=== PATIENT | female | born 1945 | race Two or more races ===

== ENCOUNTER 2019-06-24 15:39 | Inpatient (IN) | payer OTHER ==
[~2019-06-24] VITALS: Ht 154.9 cm; Wt 64.4 kg
[2019-06-24] MEDS ORDERED: HYDROcodone-ACET 7.5/325MG TAB PO ONE (17:00)
[2019-06-24] MEDS ORDERED: NITROGLYCERIN 0.4 MG SL TAB SL PRN (18:00)
[2019-06-24] MEDS ORDERED: ONDANSETRON HCL 4 MG/2 ML VIAL IV PRN (18:00)
[2019-06-24] MEDS ORDERED: DOCUSATE SOD 100 MG CAP PO PRN (18:00)
[2019-06-24 18:38] LABS: Basophils # (auto) 0 10 ^3/uL (0-0.2); Basophils % (auto) 0.3 % (0.0-2.0); Eosinophils # (auto) 0 10 ^3/uL (0-0.8); Eosinophils % (auto) 0.6 % (0.0-7.0); Hemoglobin 13.3 g/dL (12.2-16.2); Lymphocytes # (auto) 1.4 10 ^3/uL (0.4-5.4); Mean Corpuscular Hemoglobin 33.1 pg (28.0-32.0); Mean Corpuscular Hgb Conc. 34.1 g/dL (32.0-36.0); Mean Corpuscular Volume 97.1 fL (80.0-100.0); Monocytes # (auto) 0.3 10 ^3/uL (0-1.3); Monocytes % (auto) 4.8 % (0.0-12.0); Neutrophils # (auto) 5.3 10 ^3/uL (1.6-8.6); Neutrophils % (auto) 74.3 % (37.0-80.0); Nucleated Red Blood Cells % 0.1 %; Platelet Count (auto) 271 10^3/uL (140-450); Red Blood Cells 4.02 10^6/uL (4.0-5.20); Red Cell Distribution Width 12.5 % (11.8-14.3); White Blood Cell 7.1 10^3/uL (4.4-10.8)
[2019-06-24 18:53] LABS: Albumin 3.7 g/dL (3.4-5.0); Calcium 9.1 mg/dL (8.5-10.1); Potassium 3.4 mmol/L (3.5-5.1)
[2019-06-24 18:58] LABS: Bilirubin, Total 0.3 mg/dL (0.2-1.0); Total Protein 7.4 g/dL (6.4-8.2)
[2019-06-24 19:01] LABS: INR 0.96 (0.9-1.15); Partial Thromboplastin Time 26.5 sec (23.64-32.05)
[2019-06-24 20:03] LABS: BUN/Creatinine Ratio 17.3
--- NOTE | 2019-06-24 20:30 | NUR ---
Telemetry admit from [facility] admitted to Telemetry unit after SBAR received. Patient oriented to Eric Villareal, primary RN, unit, room, bed, and unit policies regarding patient care and visiting hours. Patient now on continuous telemetry monitoring, tele box # [id number] and telemetry reading on arrival to unit is sinus rhythm. Patient weighed by bedscale and encouraged to call if they need something. All questions and concerns addressed, patient verbalized understanding.
[2019-06-24 21:11] VITALS: BP 141/75
[2019-06-24] MEDS ORDERED: SIMV-8 PO (21:23)
[2019-06-24 22:00] VITALS: BP 124/58
[2019-06-24] MEDS: MORPHINE SULF INJ 2 MG/ML SYRINGE 1ML IV PRN (22:06)
[2019-06-25] MEDS: MORPHINE SULF INJ 2 MG/ML SYRINGE 1ML IV PRN ×3 (04:12→17:58)
[2019-06-25 05:00] VITALS: BP 115/69
[2019-06-25 06:05] LABS: Basophils # (auto) 0 10 ^3/uL (0-0.2); Basophils % (auto) 0.3 % (0.0-2.0); Eosinophils # (auto) 0 10 ^3/uL (0-0.8); Eosinophils % (auto) 0.6 % (0.0-7.0); Hematocrit 35.6 % (36.0-46.0); Hemoglobin 12.4 g/dL (12.2-16.2); Lymphocytes # (auto) 1.3 10 ^3/uL (0.4-5.4); Lymphocytes % (auto) 17.5 % (10.0-50.0); Mean Corpuscular Hemoglobin 33.8 pg (28.0-32.0); Mean Corpuscular Hgb Conc. 34.8 g/dL (32.0-36.0); Mean Corpuscular Volume 97.1 fL (80.0-100.0); Monocytes # (auto) 0.6 10 ^3/uL (0-1.3); Monocytes % (auto) 8.1 % (0.0-12.0); Neutrophils # (auto) 5.6 10 ^3/uL (1.6-8.6); Neutrophils % (auto) 73.5 % (37.0-80.0); Platelet Count (auto) 256 10^3/uL (140-450); Red Blood Cells 3.67 10^6/uL (4.0-5.20); Red Cell Distribution Width 12.6 % (11.8-14.3); White Blood Cell 7.6 10^3/uL (4.4-10.8)
[2019-06-25 06:19] LABS: INR 0.98 (0.9-1.15); Partial Thromboplastin Time 26.7 sec (23.64-32.05)
[2019-06-25 06:30] LABS: BUN/Creatinine Ratio 18.1; Calcium 8.3 mg/dL (8.5-10.1); Potassium 3.8 mmol/L (3.5-5.1)
[2019-06-25 09:00] VITALS: BP 117/69
--- NOTE | 2019-06-25 10:00 | NUR ---
PAIN PATIENT C/O LEFT KNEE PAIN, RATES IT 8/10 ICE PACK PROVIDED AND PATIENT REPOSITIONED FOR OPTIMAL COMFORT. PATIENT REQUESTING PAIN MEDICATION. WILL MEDICATE PER MD REQUEST.
[2019-06-25] MEDS: FAMOTIDINE 20 MG TAB PO SCH (10:17)
--- NOTE | 2019-06-25 11:12 | NUR ---
12 LEAD EKG DONE PER ORDERS. YOLY DIEGO REVIEWED STRIP. NO NEW ORDERS RECEIVED.
--- NOTE | 2019-06-25 11:25 | NUR ---
MD WOO AT BED SIDE DISCUSSING POC WITH PATIENT. PATIENT VERBALIZES UNDERSTANDING. PER MD, HE WILL BE ENTERING ORDERS TO SCHEDULE PT FOR SURGERY IN AM. WILL AWAIT ORDERS.
--- NOTE | 2019-06-25 12:41 | NUR ---
MD STEELE AT BED SIDE DISCUSSING POC WITH PATIENT. PATIENT VERBALIZES UNDERSTANDING. NO NEW ORDERS RECEIVED.
[2019-06-25 13:00] VITALS: BP 113/58
--- NOTE | 2019-06-25 16:00 | NUR ---
CARDIOLOGY CONSULT YOLY DIEGO AT BED SIDE ASSESSING AND DISCUSSING POC WITH PATIENT. PATIENT VERBALIZES UNDERSTANDING. NEW ORDERS RECEIVED. REFER TO EMAR. Addendum: 06/25/19 at 1602 by YESICA TARANGO RN RN WRONG TIME CONSULTATION DONE AT 1050
[2019-06-25 16:51] VITALS: BP 125/75
[2019-06-25 22:00] VITALS: BP 111/69
--- NOTE | 2019-06-25 23:52 | NUR ---
PATIENT ARRIVED UNIT [facility] AT 2055 WAS RECEIVED IN ROOM AND MADE COMFORTABLE ON HIS BED. DENIED PAIN.ABLE TO WALK TO THE BATHROOM.
--- NOTE | 2019-06-25 23:55 | NUR ---
2129: MOTHER CALLED AND PERSONALLY GAVE HISTORY. PROMISED TO FAX HIS MEDICATION IN AM FOR MEDICATION RECONCILIATION.
--- NOTE | 2019-06-26 00:03 | NUR ---
NOTES ENTERED 2352 AND 2355 (06/25/2019) ARE NOT FOR THIS PATIENT. THEY WERE ENTERED IN ERROR.
[2019-06-26] MEDS: HYDROcodone-ACET 5/325MG TAB PO PRN ×3 (00:24→21:24)
--- NOTE | 2019-06-26 04:27 | NUR ---
199906/25/2019. PATIENT FOUND AWAKE AND ALERT ON ER BED WITH LEFT LEG ELEVATED ON A PILLOW. DENEID PAIN AT THIS TIME. PATIENT IS FOR POSSIBLE SURGICAL REPAIR OF THE FRACTURE IN AM. IMMOBILIZATION OF LEG WITH BRACE MATERIAL IN PLACE. DISTAL END OF LEG WARM AND WITH CAPILLARY REFILL LESS THAN 3 SECONDS.
--- NOTE | 2019-06-26 04:33 | NUR ---
0024. 06/26/2019.PATIENT MEDICATED FOR PAIN WITH NORCO ONE TABLET.
--- NOTE | 2019-06-26 04:35 | NUR ---
0124. PAIN LEVEL ZERO. PATIENT SLEEPING.
--- NOTE | 2019-06-26 04:57 | NUR ---
PATIENT HAS BEEN NPO FROM MIDNIGHT FOR POSSIBLE SURGICAL REPAIR OF FRACTURED L PATELLA BONE.
[2019-06-26 05:00] VITALS: BP 104/70
--- NOTE | 2019-06-26 07:15 | NUR ---
Opening shift note Assumed care patient currently down in OR.
[2019-06-26] MEDS ORDERED: SUCCINYLCHOLINE CHLORIDE 20 MG/ML 10ML VIAL IV ONE (07:19)
[2019-06-26] MEDS ORDERED: ROPIVACAINE 0.5% (5MG/ML) 20ML AMPULE IJ ONE (07:32)
[2019-06-26] MEDS ORDERED: ceFAZolin 1GM/50ML 50 ML IV ONE (07:36)
[2019-06-26] MEDS ORDERED: fentaNYL CITRATE 100 MCG/2 ML VL ONE (07:57)
[2019-06-26] MEDS ORDERED: PROPOFOL 10 MG/ML 20 ML IV ONE (08:00)
[2019-06-26] MEDS ORDERED: ePHEDrine SULFATE 50 MG/ML AMP IV PRN (09:15)
[2019-06-26] MEDS ORDERED: ONDANSETRON HCL 4 MG/2 ML VIAL IV PRN (09:15)
[2019-06-26] MEDS ORDERED: hydrALAZINE HCL 20 MG/ML VL IV PRN (09:15)
[2019-06-26] MEDS: MORPHINE SULFATE 4 MG/ML SYR/VIAL IV PRN ×3 (09:53→10:15)
[2019-06-26] MEDS: FAMOTIDINE 20 MG TAB PO SCH (10:00)
[2019-06-26] MEDS ORDERED: ENOXAPARIN SOD 40 MG/0.4 ML SYRINGE SC SCH (10:00)
--- NOTE | 2019-06-26 10:30 | NUR ---
Patient back on unit Patient back on unit from OR. Report received from nurse Kandice. Patient AOx4, room air, denies pain at this moment. Left knee brace in place, no sings of bleeding, pulses 2+ bilaterally, HR 76, B/P 131/72. Will continue to monitor.
[2019-06-26 13:00] VITALS: BP 121/68
[2019-06-26] MEDS: ceFAZolin 1GM/50ML 50 ML IV SCH ×2 (14:45→21:24)
--- NOTE | 2019-06-26 16:23 | NUR ---
assessment Per ss consult [facility] for PT. MD order has been sent to [facility] who is contracted with patients insurance. Per Omkar from [facility] he has accepted patient for service. Service will start within 24 hours of discharge. Call Akua on discharge at [phone] to notify him of discharge. Addendum: 06/26/19 at 1627 by Ratna PETERS Amended: Links added.
[2019-06-26 17:00] VITALS: BP 119/74
[2019-06-26 22:00] VITALS: BP 104/64
[2019-06-27] MEDS: MORPHINE SULF INJ 2 MG/ML SYRINGE 1ML IV PRN ×2 (02:13→05:46)
[2019-06-27 05:00] VITALS: BP 110/58
[2019-06-27] MEDS: ceFAZolin 1GM/50ML 50 ML IV SCH ×4 (05:38→23:54)
[2019-06-27 06:21] LABS: Basophils # (auto) 0 10 ^3/uL (0-0.2); Basophils % (auto) 0.2 % (0.0-2.0); Eosinophils # (auto) 0 10 ^3/uL (0-0.8); Eosinophils % (auto) 0.2 % (0.0-7.0); Hematocrit 32.9 % (36.0-46.0); Hemoglobin 11.4 g/dL (12.2-16.2); Lymphocytes # (auto) 1.2 10 ^3/uL (0.4-5.4); Lymphocytes % (auto) 14.4 % (10.0-50.0); Mean Corpuscular Hemoglobin 34.2 pg (28.0-32.0); Mean Corpuscular Hgb Conc. 34.7 g/dL (32.0-36.0); Mean Corpuscular Volume 98.5 fL (80.0-100.0); Monocytes # (auto) 0.9 10 ^3/uL (0-1.3); Monocytes % (auto) 10.6 % (0.0-12.0); Neutrophils # (auto) 6.3 10 ^3/uL (1.6-8.6); Neutrophils % (auto) 74.6 % (37.0-80.0); Platelet Count (auto) 227 10^3/uL (140-450); Red Blood Cells 3.34 10^6/uL (4.0-5.20); Red Cell Distribution Width 12.5 % (11.8-14.3); White Blood Cell 8.4 10^3/uL (4.4-10.8)
--- NOTE | 2019-06-27 07:15 | NUR ---
Assumed care Patient currently in bed AOx4, no s/s distress, SOB, or pain noted/reported. Patient updated on POC for the day and to call for assistance as needed. Bed in low position, locked, side rails x2 up. Will continue care.
[2019-06-27 08:42] VITALS: BP 104/60
[2019-06-27] MEDS: ENOXAPARIN SOD 40 MG/0.4 ML SYRINGE SC SCH (09:26)
[2019-06-27] MEDS: FAMOTIDINE 20 MG TAB PO SCH (09:27)
[2019-06-27] MEDS: HYDROcodone-ACET 5/325MG TAB PO PRN (09:27)
--- NOTE | 2019-06-27 09:27 | NUR ---
Pain reported Patient s/p left knee surgery on 04/27/19. Patient complaining of pain 6/10 to the left knee. Patient describes pain as acute and sharp. Will medicate per doctors orders.
--- NOTE | 2019-06-27 10:27 | NUR ---
RE; Pain Patient verbalizes pain is now 2/10, patient states " I'm pretty comfortable right now, but i could get help repositioning my left leg". Left leg repositioned for comfort, no further measures taken. Will continue care.
[2019-06-27 12:43] VITALS: BP 128/56
[2019-06-27 16:46] VITALS: BP 127/79
--- NOTE | 2019-06-27 17:00 | NUR ---
Treviño catheter dc'd Verbal Order to discontinue treviño catheter by Dr. Patiño. Treviño dc'd with clean technique following deflation of balloon. Patient tolerated well with no complaints of pain. Continue care.
--- NOTE | 2019-06-27 17:30 | NUR ---
Ambulation Patient ambulated to restroom and back with walker. Patient gait stable. This RN was present during ambulation assessment. Walker at bedside.
--- NOTE | 2019-06-27 19:10 | NUR ---
Opening Shift Note Assumed care of patient, awake, alert and oriented x4, on room air with even and unlabored respirations, no S/S of distress/SOB or pain. Patient able to turn independently, bed in lowest locked position, side rails up x2, and call light within reach. Instructed on POC and to call for assist PRN, will continue to monitor for changes Q1hr and PRN.
[2019-06-27 21:00] VITALS: BP 126/82
[2019-06-28 05:00] VITALS: BP 118/67
[2019-06-28] MEDS: ceFAZolin 1GM/50ML 50 ML IV SCH ×2 (06:24→13:25)
--- NOTE | 2019-06-28 07:14 | NUR ---
OPENING SHIFT NOTE Patient currently in bed AOx4, no s/s distress, SOB, or pain noted/reported. Patient updated on POC for the day and to call for assistance as needed. Bed in low position, locked, side rails x2 up. Will continue care.
[2019-06-28 08:49] VITALS: BP 120/71
[2019-06-28] MEDS: ENOXAPARIN SOD 40 MG/0.4 ML SYRINGE SC SCH (10:36)
[2019-06-28] MEDS: FAMOTIDINE 20 MG TAB PO SCH (10:36)
--- NOTE | 2019-06-28 11:30 | NUR ---
Request for front wheel walker 11:30- Face Sheet, order, and H&P faxed to [facility]. Fax # [phone] Follow up call to [facility] made at , spoke with Sari. Per Sari faxed documents not yet received. Requested verbal information was provided by this RN to Sari. Second attempt to fax documentation was made after receiving verbal confirmation of fax number being correct.
--- NOTE | 2019-06-28 12:05 | NUR ---
IV detached IV to left AC 20 G found on patients hands still attached to IV tubing. Patient states, " I was trying to get up and it just came out." IV catheter fully intact. No bleeding noted to site, pressure dressing applied. Patient tolerated well. Dr. Patiño at bedside, per doctor no new insertion of IV necessary as patient will be getting discharged today after delivery of walker. MD informed patient has a scheduled 1400 IV antibiotic that will require IV access to be in place. Per MD ok to not give 1400 IV antibiotic as patient has already received 3 doses after surgery.
[2019-06-28 13:00] VITALS: BP 130/67
--- NOTE | 2019-06-28 14:40 | NUR ---
RE; front wheel walker Spoke with Aida from [facility] to verify if documentation requested for front wheel walker had been received via fax.. Per Aida fax was not received yet. This RN read the building construction engineer fax number twice over the phone, verbal confirmation was received that the building construction engineer fax number was correct, building construction engineer fax number . Re- attempt to fax documents was made at this time from two different fax machines. Will call back to verify if documentation has been received.
--- NOTE | 2019-06-28 15:40 | NUR ---
RE: front wheel walker Called [facility] to verify if requested documentation for front wheel walker had been received after four attempts. Per Aida no documentation received via fax. [facility] phone number and direct extension provided to Aida so she can notify me as soon as she receives fax. Awaiting call back.
[2019-06-28 16:31] VITALS: BP 130/67
[2019-06-28 16:59] VITALS: BP 114/69
--- NOTE | 2019-06-28 18:50 | NUR ---
Patient wanting to D/C without walker Patient states she can no longer wait as she has been waiting all day for delivery of front wheel walker to bedside. Patient educated on the risks of leaving hospital w/o walker. Patient verbalizes understanding and continues to state, " I'll just call and pick it up tomorrow if they drop it off tonight. I'm going to go home." D/C paperwork and education provided at this moment. Patient awaiting for to pick her up.
--- NOTE | 2019-06-28 19:20 | NUR ---
Discharge instructions given as ordered. Encourage to follow up with PMD and Orthopedic as instructed. All questions and concerns addressed. Patient verbalized understanding. Telemetry unit returned to ICU. Patient taken to vehicle via wheelchair with all personal belongings, accompanied by this RN. No distress noted at time of departure.
== END 2019-06-28 19:20 | disposition home or self-care (01) | DRG 517 ==
LOC: ER 15:39 → EDBD 15:39 → TELE 15:40 → TELE-WESTW 20:24
PROVIDERS: ADMIT Nurse Practitioner Acute Care; ATTEND Internal Medicine
PROC: 0QSF04Z Reposition Left Patella with Internal Fixation Device, Open Approach (ICD-10-PCS; principal; 2019-06-26 07:49)
DX: S82.032A Displaced transverse fracture of left patella, initial encounter for closed fracture (principal); E78.5 Hyperlipidemia, unspecified; Z90.710 Acquired absence of both cervix and uterus; W01.0XXA Fall on same level from slipping, tripping and stumbling without subsequent striking against object, initial encounter; Y93.89 Activity, other specified; Y92.098 Other place in other non-institutional residence as the place of occurrence of the external cause; Y99.8 Other external cause status
CPT/HCPCS: 36415; 71045; 73560; 73562; 73700; 76001; 80048; 80053; 83036; 83735; 84443; 85025; 85610; 85730; 93005; 93306; G0378; J0330; J0690; J2405; J2704

== ENCOUNTER 2022-09-22 14:15 | Emergency (ER) | payer OTHER ==
[~2022-09-22] VITALS: Ht 154.9 cm; Wt 59.0 kg
[~2022-09-22 14:15] MED LIST: SIMV20TA20 PO
[2022-09-22] MEDS ORDERED: KETOROLAC TROMETH 60MG/2ML VIAL IM ONE (14:45)
[2022-09-22] MEDS ORDERED: HYDR-4902 PO (15:59)
[2022-09-22] MEDS ORDERED: IBUP-1454 PO (15:59)
[2022-09-22 16:30] VITALS: BP 126/64; PULSE 77; RESP 16; TEMP 98.6; O2SAT 98
== END 2022-09-22 16:51 | disposition home or self-care (01) ==
LOC: EDBD 14:15 → ER 14:19
DX: S82.61XA Displaced fracture of lateral malleolus of right fibula, initial encounter for closed fracture (principal); S80.02XA Contusion of left knee, initial encounter; E78.5 Hyperlipidemia, unspecified; Z98.890 Other specified postprocedural states; Z79.899 Other long term (current) drug therapy; X50.1XXA Overexertion from prolonged static or awkward postures, initial encounter; Y93.89 Activity, other specified; Y92.098 Other place in other non-institutional residence as the place of occurrence of the external cause; Y99.8 Other external cause status
CPT/HCPCS: 29515; 73562; 73610; 96372; 99284; J1885

== ENCOUNTER → 2023-10-01 | Outpatient (CLI) | payer OTHER ==
[~2023-10-01] MED LIST changes: +HYDR-4902 PO; +IBUP-1454 PO
[2023-10-01 15:19] LABS: Basophils # (auto) 0 10 ^3/uL (0-0.2); Basophils % (auto) 0.6 % (0.0-2.0); Eosinophils # (auto) 0.1 10 ^3/uL (0-0.8); Eosinophils % (auto) 1.3 % (0.0-7.0); Hematocrit 39.4 % (36.0-46.0); Hemoglobin 13.7 g/dL (12.2-16.2); Lymphocytes % (auto) 25.1 % (10.0-50.0); Mean Corpuscular Hemoglobin 33.5 pg (28.0-32.0); Mean Corpuscular Hgb Conc. 34.6 g/dL (32.0-36.0); Mean Corpuscular Volume 96.7 fL (80.0-100.0); Monocytes # (auto) 0.6 10 ^3/uL (0-1.3); Monocytes % (auto) 7.5 % (0.0-12.0); Neutrophils # (auto) 5.1 10 ^3/uL (1.6-8.6); Neutrophils % (auto) 65.5 % (37.0-80.0); Red Blood Cells 4.08 10^6/uL (4.0-5.20); Red Cell Distribution Width 12.5 % (11.8-14.3); White Blood Cell 7.8 10^3/uL (4.4-10.8)
[2023-10-01 15:50] LABS: Follicle Stimulating Hormone 68.63 IU/L (SEE BELOW); Leuteinizing Hormone 32.8 IU/L
== END | disposition home or self-care (01) ==
LOC: LAB 15:01
PROVIDERS: ATTEND Obstetrics & Gynecology
DX: N95.1 Menopausal and female climacteric states (principal); Z79.899 Other long term (current) drug therapy
CPT/HCPCS: 36415; 82670; 83001; 83002; 84403; 84443; 85025